=== PATIENT | female | born 1950 | race Caucasian/White ===

== ENCOUNTER → 2021-08-23 09:59 | Outpatient (CLI) | payer MEDICARE, SELFPAY ==
[2021-08-23 11:09] LABS: EXAGEN MAILED SPECIMEN
[2021-08-23 12:07] LABS: Color, Urine Yellow (Yellow); Glucose, Dipstick Normal (Normal); Ketone-Dipstick Negative (Negative); Leukocyte Esterase-Dipstick Negative /ul (Negative); Nitrite-Dipstick Negative (Negative); Occult Blood-Urine Negative /ul (Negative); Protein-Dipstick Negative (Negative); Urine Bilirubin Dipstick Negative (Negative); Urine Clarity Clear (Clear); Urine Urobilinogen Normal (Normal)
[2021-08-23 12:20] LABS: Protein, Urine (Random) < 6.0 mg/dL (<11.9)
[2021-08-23 12:21] LABS: ALB/GLOB Ratio 0.9 RATIO (0.9-2.4); AST(SGOT) 13 U/L (15-37); Alanine Aminotransfer ALT/SGPT 27 U/L (13-56); Albumin, Serum 3.3 g/dL (3.2-5.0); Alkaline Phosphatase 101 U/L (45-117); Anion Gap 3 (5-15); BUN 20 mg/dL (7-18); BUN/Creat Ratio 17.7 RATIO (10-20); Chloride 99 mmol/L (98-107); Creatinine, Serum 1.13 mg/dL (0.55-1.02); EST Glomerular Filtration Rate 50 mL/min (>60); Est Glom Filt Rate - Afr Amer 61 mL/min (>60); Globulin 3.8 g/dL (2.2-4.2); Glucose 109 mg/dL (74-106); Potassium 3.6 mmol/L (3.5-5.1); Protein, Total 7.1 g/dL (6.4-8.2); Sodium Level 137 mmol/L (136-145)
[2021-08-27 09:07] LABS: Dilute Prothrombin Time (dPT) 39.9 sec (0.0-47.6); Dilute Russell Viper Venom 51.8 sec (0.0-47.0); PTT-LA 36.6 sec (0.0-51.9); Thrombin Time 19.3 sec (0.0-23.0); dPT Confirm Ratio 1.29 Ratio (0.00-1.34)
[2021-08-27 12:13] LABS: Interpretation Comment: (.)
== END ==
PROVIDERS: Referring Provider Internal Medicine Rheumatology; Visit Provider Internal Medicine Rheumatology
DX: H35.81 Retinal edema (principal); R76.8 Other specified abnormal immunological findings in serum; M19.041 Primary osteoarthritis, right hand; I10 Essential (primary) hypertension; E78.5 Hyperlipidemia, unspecified; K21.9 Gastro-esophageal reflux disease without esophagitis
CPT/HCPCS: 36415; 80053; 81002; 82570; 84156